=== PATIENT | female | born 1965 | race African-American/Black ===

== ENCOUNTER 2019-06-17 23:20 | Observation (INO) ==
[2019-06-18 00:10] LABS: INR 1.1; Prothrombin Time 12.9 Seconds (9.4-12.1)
[2019-06-18 00:13] LABS: Activated Partial Thrombo Time 39.3 Seconds (26.0-36.0)
[2019-06-18 00:20] LABS: BUN/Creatinine Ratio 31 (6-26); Blood Urea Nitrogen 11 mg/dL (6-20); Calcium 9.6 mg/dL (8.6-10.3); Carbon Dioxide 28 mEq/L (23-29); Chloride 107 mEq/L (98-107); Glucose 97 mg/dL (70-105); Osmolality,Calculated 291 (280-300); Sodium 141 mEq/L (136-145); eGFR For African Americans > 60 (> 60); eGFR For Non-African Americans > 60 (> 60)
[2019-06-18 00:21] LABS: Troponin I < 0.03 ng/mL (< 0.04)
[2019-06-18 00:33] LABS: Hematocrit 40.1 % (35.3-44.9); Hemoglobin 12.5 g/dL (11.5-15.4); Mean Corpuscular HGB Conc 31.2 g/dL (31.6-35.5); Mean Corpuscular Hemoglobin 26.4 pg (28.0-33.3); Mean Corpuscular Volume 84.8 fL (83.0-100.0); Mean Platelet Volume 10.6 fL (9.4-12.4); Platelet Count 244 K/mcL (140-400); Red Blood Count 4.73 M/mcL (3.82-4.97); Red Cell Distribution Width 12.3 % (11.5-14.5); White Blood Count 4.3 K/mcL (4.3-11.1)
[2019-06-18 00:38] LABS: Thyroid Stimulating Hormone < 0.010 mcIU/mL (0.340-5.600)
[2019-06-18] MEDS ORDERED: *HR* Metoprolol 5 MG/5 ML VIAL IVP STA (00:49)
[2019-06-18] MEDS ORDERED: 0.9 % Sodium Chloride 1,000 ML IVC ONE (00:49)
[2019-06-18 01:09] LABS: Eosinophils # 0.3 K/mcL (0.0-0.6); Lymphocytes # 2.6 K/mcL (0.6-4.6); Monocytes # 0.3 K/mcL (0.0-1.3); Platelet Estimate Normal (Normal); Reactive Lymphocytes Present (Not Present)
[2019-06-18] MEDS ORDERED: Naloxone 0.4 MG/ML INJ IVP PRN (03:24)
[2019-06-18] MEDS ORDERED: *HR* Metoprolol 5 MG/5 ML VIAL IVP PRN (03:26)
[2019-06-18] MEDS ORDERED: 0.9 % Sodium Chloride 1,000 ML IVC SCH (03:30)
[2019-06-18 04:44] LABS: Chol/HDL Ratio 2.5 (0-4.9); Cholesterol 102 mg/dL (< 200); HDL Cholesterol 41 mg/dL (40-59); LDL Cholesterol,Calculated 51 mg/dL (0-99); Triglycerides 49 mg/dL (< 150)
[2019-06-18 04:46] LABS: Troponin I < 0.03 ng/mL (< 0.04)
[2019-06-18] MEDS: *HR* Heparin 5,000 UNIT/ML VIAL SQ SCH ×3 (05:29→21:01)
[2019-06-18 08:21] LABS: Estimated Average Glucose 126 mg/dl
[2019-06-18] MEDS: methIMAzole 5 MG TABLET PO SCH ×4 (08:51→21:02)
[2019-06-18] MEDS: Hydrocortisone Sodium Succ 100 MG/2 ML VIAL IVP SCH ×2 (08:51→17:52)
[2019-06-18] MEDS: 0.9 % Sodium Chloride 1,000 ML IVC SCH (08:52)
[2019-06-19] MEDS: Hydrocortisone Sodium Succ 100 MG/2 ML VIAL IVP SCH ×2 (00:21→09:06)
[2019-06-19] MEDS: 0.9 % Sodium Chloride 1,000 ML IVC SCH (00:21)
[2019-06-19] MEDS: methIMAzole 5 MG TABLET PO SCH ×5 (00:21→19:12)
[2019-06-19 02:08] LABS: Basophils % 0.2 %; Hematocrit 34.5 % (35.3-44.9); Hemoglobin 11.1 g/dL (11.5-15.4); Immature Granulocytes % 0.4 % (0-4); Lymphocytes # 1.4 K/mcL (0.6-4.6); Mean Corpuscular HGB Conc 32.2 g/dL (31.6-35.5); Mean Corpuscular Hemoglobin 26.3 pg (28.0-33.3); Mean Corpuscular Volume 81.8 fL (83.0-100.0); Mean Platelet Volume 10.6 fL (9.4-12.4); Monocytes # 0.7 K/mcL (0.0-1.3); Neutrophils # 2.6 K/mcL (1.6-8.9); Platelet Count 228 K/mcL (140-400); Red Blood Count 4.22 M/mcL (3.82-4.97); Red Cell Distribution Width 12.3 % (11.5-14.5); Segmented Neutrophils % 55.4 %; White Blood Count 4.6 K/mcL (4.3-11.1)
[2019-06-19 02:15] LABS: BUN/Creatinine Ratio 33 (6-26); Blood Urea Nitrogen 12 mg/dL (6-20); Calcium 8.7 mg/dL (8.6-10.3); Carbon Dioxide 22 mEq/L (23-29); Chloride 113 mEq/L (98-107); Glucose 147 mg/dL (70-105); Magnesium 1.7 mg/dL (1.6-2.6); Osmolality,Calculated 296 (280-300); Phosphorous 4.2 mg/dL (2.7-4.5); Potassium 3.7 mEq/L (3.5-5.1); Sodium 142 mEq/L (136-145); eGFR For African Americans > 60 (> 60); eGFR For Non-African Americans > 60 (> 60)
[2019-06-19] MEDS: *HR* Heparin 5,000 UNIT/ML VIAL SQ SCH ×3 (05:25→21:24)
[2019-06-19] MEDS ORDERED: Hydrocortisone Sodium Succ 100 MG/2 ML VIAL IVP SCH (20:00)
[2019-06-20] MEDS: methIMAzole 5 MG TABLET PO SCH (01:56)
[2019-06-20] MEDS: *HR* Heparin 5,000 UNIT/ML VIAL SQ SCH (05:33)
[2019-06-20 07:10] VITALS: BP 127/77
[2019-06-20] MEDS ORDERED: Hydrocortisone Sodium Succ 100 MG/2 ML VIAL IVP SCH (09:00)
[2019-06-20] MEDS ORDERED: methIMAzole 5 MG TABLET PO SCH (10:00)
== END 2019-06-20 09:34 | disposition home or self-care (01) ==
LOC: 3BNU 23:20 → EMEROOARM 23:20 → SUATTDRO 06-18 01:40 → 3BNU 06-18 02:18
PROVIDERS: ADMIT Internal Medicine; ATTEND Family Medicine